=== PATIENT | female | born 1990 | race Caucasian/White ===

== ENCOUNTER 2018-04-06 00:21 | Inpatient (IN) | payer BC ==
[2018-04-06] MEDS ORDERED: Misoprostol 25 MCG (1/4 of 100 MCG) Tab VAG PRN (00:37)
[2018-04-06] MEDS ORDERED: Carboprost Tromethamine 250 MCG/1 ML Amp IM PRN (00:37)
[2018-04-06] MEDS ORDERED: Lidocaine 1% 50 ML MDV INJECT PRN (00:37)
[2018-04-06] MEDS ORDERED: Terbutaline 1 MG/ML SDV SUBCUT PRN (00:37)
[2018-04-06] MEDS ORDERED: Misoprostol 200 MCG Tab PO PRN (00:37)
[2018-04-06] MEDS ORDERED: Water For Irrigation,Sterile 1,000 ML Container IRR PRN (00:37)
[2018-04-06] MEDS ORDERED: Sodium Chloride 0.9% 2.5 ML Syringe FLUSH PRN (00:37)
[2018-04-06] MEDS ORDERED: Methylergonovine 0.2 MG/1 ML Amp IM PRN (00:37)
[2018-04-06] MEDS ORDERED: Tranexamic Acid 1,000 MG in Sodium Chloride 0.9% 100 ML IV PRN (00:37)
[2018-04-06] MEDS ORDERED: Sodium Chloride 0.9% 10 ML Syringe FLUSH PRN (00:37)
[2018-04-06] MEDS ORDERED: Oxytocin/0.9 % Sodium Chloride 30 UNIT/500 ML BAG IV SCH ×2 (00:45)
[2018-04-06] MEDS: Misoprostol 25 MCG (1/4 of 100 MCG) Tab PO PRN ×3 (01:26→09:47)
[2018-04-06] MEDS: Misoprostol 25 MCG (1/4 of 100 MCG) Tab VAG PRN ×3 (01:26→09:44)
--- NOTE | 2018-04-06 08:16 | PCM.LDHP ---
L&D History of Present Illness - General Date of Service: 04/06/18 Admit Problem/Dx: Patient Status Order with Admit Dx/Problem 04/06/18 00:37 Patient Status [ADT] Routine Admission Diagnosis/Problem Admission Diagnosis/Problem - planned 04/06/18 08:10 28yo EDC 04/13/2018 39 0/7wks A+, RI, GBS pos. 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: Reports: Hypertension 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: Psychiatric History: Reports: Depression - Past Surgical History GI Surgical History: Reports: Cholecystectomy Social & Family History - Family History Family Medical History: Noncontributory - Tobacco Use Smoking Status *Q: Former Smoker Years of Tobacco use: 5 Used Tobacco, but Quit: No Second Hand Smoke Exposure: No - Caffeine Use Caffeine Use: Reports: None - Recreational Drug Use Recreational Drug Use: No H&P Review of Systems - Review of Systems: Review Of Systems: See Below General: Reports: No Symptoms HEENT: Reports: No Symptoms Pulmonary: Reports: No Symptoms Cardiovascular: Reports: No Symptoms Gastrointestinal: Reports: No Symptoms Genitourinary: Reports: No Symptoms Musculoskeletal: Reports: No Symptoms Skin: Reports: No Symptoms Psychiatric: Reports: No Symptoms Neurological: Reports: No Symptoms Hematologic/Lymphatic: Reports: No Symptoms Immunologic: Reports: No Symptoms L&D Exam - Exam Exam: See Below - Vital Signs Weight: 95.254 kg - OB Specific Contraction Intensity: Mild to Moderate Movement: Active Heart Tones: Present Heart Tones per Min: 150 Heart Rate (FHR) Variability: Moderate (6-25 bmp) Presentation: Vertex - Reid Score Reid Score Cervix Position: Midposition Reid Score Consistency: Medium Reid Score Effacement: 51-70% Reid Score Dilation: 1-2 cm Reid Score Infant's Station: -2 Reid Score Total: 6 - Exam General: Alert, Oriented, Cooperative HEENT: Hearing Intact Lungs: Clear to Auscultation, Normal Respiratory Effort Cardiovascular: Regular Rate, Regular Rhythm, Normal S1, Normal S2 GI/Abdominal Exam: Soft, Non-Tender Rectal Exam: Deferred Genitourinary: Normal external exam, Normal bimanual exam, Cervical dilitation Back Exam: Normal Inspection, Full Range of Motion Extremities: Normal Inspection, Normal Range of Motion, Non-Tender, No Pedal Edema, Normal Capillary Refill Neurological: Cranial Nerves Intact, Strength Equal Bilateral, Normal Gait, Normal Speech, Normal Tone, Sensation Intact Psychiatric: Alert, Normal Affect, Normal Mood - Patient Data Lab Results Last 24 hrs: Laboratory Results - last 24 hr 04/06/18 04/06/18 Range/Units 01:03 01:03 WBC 12.80 H (4.0-11.0) K/uL RBC 4.77 (4.30-5.90) M/uL Hgb 13.4 (12.0-16.0) g/dL Hct 39.9 (36.0-46.0) % MCV 83.6 (80.0-98.0) fL MCH 28.1 (27.0-32.0) pg MCHC 33.6 (31.0-37.0) g/dL RDW Std Deviation 42.1 (28.0-62.0) fl RDW Coeff of Odilon 14 (11.0-15.0) % Plt Count 220 (150-400) K/uL MPV 12.80 H (7.40-12.00) fL Blood Type A POSITIVE Antibody Screen NEGATIVE Result Diagrams: 04/06/18 01:03 - Problem List (1) Supervision of normal IUP (intrauterine ) in primigravida SNOMED Code(s): 58691910, 936795888, 832937270, 196784830 ICD Code: Z34.00 - ENCNTR FOR SUPRVSN OF NORMAL FIRST , UNSP TRIMESTER Status: Acute Priority: High Current Visit: Yes Qualifiers: Trimester: third trimester Qualified Code(s): Z34.03 - Encounter for supervision of normal first , third trimester Problem List Initiated/Reviewed/Updated: Yes Orders Last 24hrs: Active Orders 24 hr Category Date Time Status Patient Status [ADT] Routine ADT 04/06/18 00:37 Active Bedrest Bathroom Privileges [RC] ASDIRECTED Care 04/06/18 00:37 Active Communication Order [RC] ASDIRECTED Care 04/06/18 00:37 Active Communication Order [RC] ASDIRECTED Care 04/06/18 00:37 Active Communication Order [RC] ASDIRECTED Care 04/06/18 00:37 Active Heart Tones [RC] CONTINUOUS Care 04/06/18 00:37 Active Non Stress Test [RC] PER UNIT ROUTINE Care 04/06/18 00:37 Active Influenza Vaccine Charge [RC] .DISCHARGE Care 04/06/18 02:00 Active May Shower [RC] ASDIRECTED Care 04/06/18 00:37 Active Notify Provider [RC] PRN Care 04/06/18 00:37 Active Notify Provider [RC] PRN Care 04/06/18 00:37 Active Notify Provider [RC] PRN Care 04/06/18 00:37 Active Notify Provider [RC] STAT Care 04/06/18 00:37 Active Oxygen Therapy [RC] ASDIRECTED Care 04/06/18 00:37 Active Up ad Whitney [RC] ASDIRECTED Care 04/06/18 00:37 Active Vaginal Exam [RC] PRN Care 04/06/18 00:37 Active Vaginal Exam [RC] PRN Care 04/06/18 00:37 Active Vital Signs [RC] PER UNIT ROUTINE Care 04/06/18 00:37 Active Vital Signs [RC] PER UNIT ROUTINE Care 04/06/18 00:37 Active Regular Diet [DIET] Diet 04/06/18 Breakfast Active Carboprost Tromethamine [Hemabate DS] Med 04/06/18 00:37 Active 250 mcg IM ASDIRECTED PRN FLU Vacc [id number] 36MOS UP/PF [Fluzone Quad [id number] Med 04/06/18 10:00 Once Syringe] 60 mcg IM .ONCE ONE Lactated Ringers [Ringers, Lactated] 1,000 ml Med 04/06/18 00:45 Active IV ASDIRECTED Lidocaine 1% [Xylocaine 1%] Med 04/06/18 00:37 Active 50 ml INJECT ONETIME PRN Methylergonovine [Methergine] Med 04/06/18 00:37 Active 0.2 mg IM ASDIRECTED PRN Nalbuphine [Nubain] Med 04/06/18 00:37 Active 10 mg IVPUSH Q1H PRN Oxytocin/0.9 % Sodium Chloride [Oxytocin 30 Unit/500 ML Med 04/06/18 00:45 Active -NS] 30 unit in 500 ml IV TITRATE Oxytocin/0.9 % Sodium Chloride [Oxytocin 30 Unit/500 ML Med 04/06/18 00:45 Active -NS] 30 unit in 500 ml IV TITRATE Sodium Chloride 0.9% [Saline Flush] Med 04/06/18 00:37 Active 10 ml FLUSH ASDIRECTED PRN Sodium Chloride 0.9% [Saline Flush] Med 04/06/18 00:37 Active 2.5 ml FLUSH ASDIRECTED PRN Terbutaline [Brethine] Med 04/06/18 00:37 Active 0.25 mg SUBCUT ASDIRECTED PRN Tranexamic Acid [Cyklokapron] 1,000 mg Med 04/06/18 00:37 Active Sodium Chloride 0.9% [Normal Saline] 100 ml IV ONETIME Water For Irrigation,Sterile [Sterile Water for Med 04/06/18 00:37 Active Irrigation] 1,000 ml IRR ASDIRECTED PRN miSOPROStol [Cytotec] Med 04/06/18 00:37 Active 200 mcg PO ONETIME PRN miSOPROStol [Cytotec] Med 04/06/18 00:37 Active 25 mcg PO Q4H PRN miSOPROStol [Cytotec] Med 04/06/18 00:37 Active 25 mcg VAG ONETIME PRN miSOPROStol [Cytotec] Med 04/06/18 00:37 Active 25 mcg VAG Q4H PRN Scalp Electrode [WOMSER] Per Unit Routine Oth 04/06/18 00:37 Ordered Medication Administration Instruction [OM.PC] Q3H Oth 04/06/18 00:45 Ordered Peripheral IV Insertion Adult [OM.PC] Routine Oth 04/06/18 00:37 Ordered Resuscitation Status Routine Resus Stat 04/06/18 00:37 Ordered Medication Orders Carboprost Tromethamine (Hemabate Ds) 250 mcg IM ASDIRECTED PRN PRN Reason: Post Hemorrhage Lactated Ringer's (Ringers, Lactated) 1,000 mls @ 150 mls/hr IV ASDIRECTED SUZETTE Oxytocin/Sodium Chloride (Oxytocin 30 Unit/500 Ml-Ns) 30 unit in 500 mls @ 999 mls/hr IV TITRATE SUZETTE Oxytocin/Sodium Chloride (Oxytocin 30 Unit/500 Ml-Ns) 30 unit in 500 mls @ 2 mls/hr IV TITRATE SUZETTE; Protocol Tranexamic Acid 1,000 mg/ (Sodium Chloride) 110 mls @ 660 mls/hr IV ONETIME PRN PRN Reason: Bleeding Lidocaine HCl (Xylocaine 1%) 50 ml INJECT ONETIME PRN PRN Reason: Laceration repair Methylergonovine Maleate (Methergine) 0.2 mg IM ASDIRECTED PRN PRN Reason: Post Hemorrhage Misoprostol (Cytotec) 200 mcg PO ONETIME PRN PRN Reason: Post Hemorrhage Misoprostol (Cytotec) 25 mcg VAG ONETIME PRN PRN Reason: Cervical Ripening Misoprostol (Cytotec) 25 mcg VAG Q4H PRN PRN Reason: Cervical Ripening Last Admin: 04/06/18 05:44 Dose: 25 mcg Admin: 04/06/18 01:26 Dose: 25 mcg Misoprostol (Cytotec) 25 mcg PO Q4H PRN PRN Reason: Cervical Ripening Last Admin: 04/06/18 05:45 Dose: 25 mcg Admin: 04/06/18 01:26 Dose: 25 mcg Nalbuphine HCl (Nubain) 10 mg IVPUSH Q1H PRN PRN Reason: Pain (severe 7-10) Sodium Chloride (Saline Flush) 10 ml FLUSH ASDIRECTED PRN PRN Reason: Keep Vein Open Sodium Chloride (Saline Flush) 2.5 ml FLUSH ASDIRECTED PRN PRN Reason: Keep Vein Open Sterile Water (Sterile Water For Irrigation) 1,000 ml IRR ASDIRECTED PRN PRN Reason: delivery Terbutaline Sulfate (Brethine) 0.25 mg SUBCUT ASDIRECTED PRN PRN Reason: Tacysystole Assessment/Plan Comment:: IOL A: 28yo EDC 04/13/2018 39 0/7wks A+, RI, GBS pos. IOL term P: Admit, cytotec to pitocin, Amp for GBS when in labor, anticipate , Dr Matthews updated
[2018-04-06] MEDS ORDERED: Ampicillin 2 GM in Sodium Chloride 0.9% 100 ML IV ONE (14:30)
[2018-04-06] MEDS: Lactated Ringers 1,000 ML IV SCH ×2 (15:05→22:42)
[2018-04-06] MEDS: Nalbuphine 10 MG/1 ML Vial IVPUSH PRN ×2 (17:01→18:34)
[2018-04-06] MEDS ORDERED: Ampicillin 1 GM in Sodium Chloride 0.9% 50 ML IV SCH (18:30)
[2018-04-06] MEDS: Ampicillin 1 GM in Sodium Chloride 0.9% 50 ML IV SCH ×2 (19:03→22:44)
[2018-04-07] MEDS ORDERED: Acetaminophen 500 MG Tab PO PRN ×2 (02:14)
[2018-04-07] MEDS ORDERED: oxyCODONE 5 MG Tab PO PRN (02:14)
[2018-04-07] MEDS ORDERED: Benzocaine/Menthol 20%-0.5% Spray 78 GM Cannister TOP PRN (02:14)
[2018-04-07] MEDS ORDERED: Bisacodyl 10 MG Supp RECTAL PRN (02:14)
[2018-04-07] MEDS ORDERED: Lanolin 100% Cream 7 GM Tube TOP PRN (02:14)
[2018-04-07] MEDS ORDERED: Docusate Sodium 100 MG Cap PO PRN (02:14)
[2018-04-07] MEDS ORDERED: Witch Hazel Medicated Pads 40/Jar TOP PRN (02:14)
[2018-04-07] MEDS ORDERED: Ibuprofen 400 MG Tab PO PRN (02:14)
--- NOTE | 2018-04-07 02:19 | PCM.DEL ---
L & D Note - General Info Date of Service: 04/07/18 Mother's Due Date: 04/13/18 - Delivery Note Labor: Augmented by Oxytocin Cervical Ripening Method: Misoprostil Delivery Outcome: Livebirth Infant Delivery Method: Spontaneous Vaginal Delivery-Single Delivery Mode: Spontaneous Presentation: Vertex Nuchal Cord: Present Anesthesia Type: None Episiotomy Type: None Laceration: None Placenta: Intact, Spontaneous Cord: 3 Vessels Estimated Blood Loss: 200 Score 1 min: 3 Score 5 min: 6 Second Stage Interventions: Reports: Pushing, Pulls Own Legs Back Induction Criteria - Reid Score Reid Score Dilation: 1-2 cm Reid Score Effacement: 40-50% Reid Score Infant's Station: -3 Reid Score Consistency: Soft Reid Score Cervix Position: Midposition Reid Score Total: 5 Reid Score Presenting Part: Reports: Cephalic - Induction Gestational Age >/= 39 wks: Yes Medical Indication: Term elective Estimated Pelvis: Reports: Adequate Reassuring Monitoring Strip: Yes Absence of Tachy Systole: Yes - General Info Date of Service: 04/07/18 Admission Dx/Problem (Free Text): Patient Status Order with Admit Dx/Problem 04/06/18 00:37 Patient Status [ADT] Routine Admission Diagnosis/Problem Admission Diagnosis/Problem - planned 04/06/18 08:10 28yo EDC 04/13/2018 39 0/7wks A+, RI, GBS pos. IOL term Functional Status: Reports: Pain Controlled, Tolerating Diet - Review of Systems General: Reports: No Symptoms HEENT: Reports: No Symptoms Pulmonary: Reports: No Symptoms Cardiovascular: Reports: No Symptoms Gastrointestinal: Reports: No Symptoms Genitourinary: Reports: No Symptoms Musculoskeletal: Reports: No Symptoms Skin: Reports: No Symptoms Neurological: Reports: No Symptoms Psychiatric: Reports: No Symptoms - Patient Data Weight - Most Recent: 95.254 kg Lab Results Last 24 Hours: Laboratory Results - last 24 hr 04/07/18 Range/Units 02:06 POC Glucose 112 H (60-110) mg/dL Med Orders - Current: Current Medications Discontinued Medications Carboprost Tromethamine (Hemabate Ds) 250 mcg IM ASDIRECTED PRN PRN Reason: Post Hemorrhage Lactated Ringer's (Ringers, Lactated) 1,000 mls @ 150 mls/hr IV ASDIRECTED SUZETTE Last Admin: 04/06/18 22:42 Dose: 150 mls/hr Oxytocin/Sodium Chloride (Oxytocin 30 Unit/500 Ml-Ns) 30 unit in 500 mls @ 999 mls/hr IV TITRATE SUZETTE Oxytocin/Sodium Chloride (Oxytocin 30 Unit/500 Ml-Ns) 30 unit in 500 mls @ 2 mls/hr IV TITRATE [facility]; Protocol Last Titration: 04/07/18 01:18 Dose: 12 munits/min, 12 mls/hr Tranexamic Acid 1,000 mg/ (Sodium Chloride) 110 mls @ 660 mls/hr IV ONETIME PRN PRN Reason: Bleeding Ampicillin Sodium 2 gm/ Sodium (Chloride) 100 mls @ 200 mls/hr IV ONETIME ONE Stop: 04/06/18 14:59 Last Admin: 04/06/18 15:05 Dose: 200 mls/hr Ampicillin Sodium 1 gm/ Sodium (Chloride) 50 mls @ 100 mls/hr IV Q4HR SUZETTE Ampicillin Sodium 1 gm/ Sodium (Chloride) 50 mls @ 100 mls/hr IV Q4H [facility] Last Admin: 04/06/18 22:44 Dose: 100 mls/hr Lidocaine HCl (Xylocaine 1%) 50 ml INJECT ONETIME PRN PRN Reason: Laceration repair Methylergonovine Maleate (Methergine) 0.2 mg IM ASDIRECTED PRN PRN Reason: Post Hemorrhage Misoprostol (Cytotec) 200 mcg PO ONETIME PRN PRN Reason: Post Hemorrhage Misoprostol (Cytotec) 25 mcg VAG ONETIME PRN PRN Reason: Cervical Ripening Misoprostol (Cytotec) 25 mcg VAG Q4H PRN PRN Reason: Cervical Ripening Last Admin: 04/06/18 09:44 Dose: 25 mcg Misoprostol (Cytotec) 25 mcg PO Q4H PRN PRN Reason: Cervical Ripening Last Admin: 04/06/18 09:47 Dose: 25 mcg Nalbuphine HCl (Nubain) 10 mg IVPUSH Q1H PRN PRN Reason: Pain (severe 7-10) Last Admin: 04/06/18 18:34 Dose: 10 mg Sodium Chloride (Saline Flush) 10 ml FLUSH ASDIRECTED PRN PRN Reason: Keep Vein Open Sodium Chloride (Saline Flush) 2.5 ml FLUSH ASDIRECTED PRN PRN Reason: Keep Vein Open Sterile Water (Sterile Water For Irrigation) 1,000 ml IRR ASDIRECTED PRN PRN Reason: delivery Terbutaline Sulfate (Brethine) 0.25 mg SUBCUT ASDIRECTED PRN PRN Reason: Tacysystole - Exam General: Alert, Oriented, Cooperative Lungs: Normal Respiratory Effort GI/Abdominal Exam: Soft, Non-Tender (Female) Exam: Normal External Exam, Normal Bimanual Exam, Vaginal Bleeding Back Exam: Normal Inspection, Full Range of Motion Extremities: Normal Inspection, Normal Range of Motion, Non-Tender, No Pedal Edema, Normal Capillary Refill Skin: Warm, Dry, Intact Wound/Incisions: Healing Well Neurological: No New Focal Deficit, Normal Speech, Normal Tone, Strength Equal Bilateral Psy/Mental Status: Alert, Normal Affect, Normal Mood - Problem List & Annotations (1) Supervision of normal IUP (intrauterine ) in primigravida SNOMED Code(s): 46662518, 064655883, 032115271, 341723374 Code(s): Z34.00 - ENCNTR FOR SUPRVSN OF NORMAL FIRST , UNSP TRIMESTER Status: Acute Priority: High Current Visit: Yes Qualifiers: Trimester: third trimester Qualified Code(s): Z34.03 - Encounter for supervision of normal first , third trimester (2) (normal spontaneous vaginal delivery) SNOMED Code(s): 61793489 Code(s): O80 - ENCOUNTER FOR FULL-TERM UNCOMPLICATED DELIVERY Status: Acute Priority: High Current Visit: Yes - Problem List Review Problem List Initiated/Reviewed/Updated: Yes - My Orders Last 24 Hours: My Active Orders 04/07/18 02:14 May Shower [RC] ASDIRECTED Up ad Whitney [RC] ASDIRECTED Vital Signs [RC] PER UNIT ROUTINE Acetaminophen [Tylenol Extra Strength] 1,000 mg PO Q4H PRN Acetaminophen [Tylenol Extra Strength] 500 mg PO Q4H PRN Benzocaine/Menthol [Dermoplast Pain Relief 20%-0.5% [place]] 78 gm TOP ASDIRECTED PRN Bisacodyl [Dulcolax] 10 mg RECTAL ONETIME PRN Docusate Sodium [Colace] 100 mg PO BID PRN Ibuprofen [Motrin] 400 mg PO Q4H PRN Ibuprofen [Motrin] 800 mg PO Q6H PRN Lanolin [Lansinoh HPA] See Dose Instructions TOP ASDIRECTED PRN Witch Natalie [Tucks] 1 pad TOP ASDIRECTED PRN oxyCODONE 5 mg PO Q2H PRN Assess Lochia [WOMSER] Per Unit Routine Assess Uterine Involution [WOMSER] Per Unit Routine Peripheral IV Discontinue [OM.PC] Routine Resuscitation Status Routine 04/07/18 02:15 Patient Status [ADT] Routine 04/07/18 Breakfast Regular Diet [DIET] - Plan Plan:: IOL A: 28yo EDC 04/13/2018 39 0/7wks A+, RI, GBS pos. IOL term P: Admit, cytotec to pitocin, Amp for GBS when in labor, anticipate , Dr Matthews updated Delivery A: of viable female, APGARS 3/6, Wt 7#0oz, Intact perineum, EBL 200, Mother and baby bonding well. Stable for recovery P: Routine pp plan of care
[2018-04-07] MEDS: Ibuprofen 800 MG Tab PO PRN (03:59)
[2018-04-08] MEDS: Ibuprofen 800 MG Tab PO PRN ×2 (03:59→11:26)
[2018-04-08 08:14] VITALS: BP 130/75
--- NOTE | 2018-04-08 09:02 | PCM.DCSUM1 ---
Discharge Summary - Hospital Course Free Text/Narrative:: Discharge home with . Follow up 6 weeks for post or sooner if needed. Diagnosis: Stroke: No - Discharge Data Discharge Date: 04/08/18 Discharge Disposition: Home, Self-Care 01 Condition: Good - Discharge Diagnosis/Problem(s) (1) Supervision of normal IUP (intrauterine ) in primigravida SNOMED Code(s): 51706769, 607734219, 841976877, 706176017 ICD Code: Z34.00 - ENCNTR FOR SUPRVSN OF NORMAL FIRST , UNSP TRIMESTER Status: Acute Priority: High Current Visit: Yes Qualifiers: Trimester: third trimester Qualified Code(s): Z34.03 - Encounter for supervision of normal first , third trimester (2) (normal spontaneous vaginal delivery) SNOMED Code(s): 10587543 ICD Code: O80 - ENCOUNTER FOR FULL-TERM UNCOMPLICATED DELIVERY Status: Acute Priority: High Current Visit: Yes - Patient Instructions Diet: Usual Diet as Tolerated Activity: As Tolerated, No Strenuous Activities, Rest and Relax Today Driving: May Drive Today Showering/Bathing: May Shower Notify Provider of: Fever, Increased Pain, Swelling and Redness, Nausea and/or Vomiting Other/Special Instructions: Discharge home with infant. Follow up 6 weeks for post or sooner if needed. - Discharge Plan *PRESCRIPTION DRUG MONITORING PROGRAM REVIEWED*: Not Applicable *COPY OF PRESCRIPTION DRUG MONITORING REPORT IN PATIENT GABBIE: Not Applicable Home Medications: Home Meds Vits #93/Iron Fum/FA [ Formula Tablet] 1 each PO DAILY [History] Referrals: [facility] [Outside] Nat Sanders CNM [Mid-] - 05/18/18 8:30 am - General Info Date of Service: 04/08/18 Admission Dx/Problem (Free Text: Patient Status Order with Admit Dx/Problem 04/06/18 00:37 Patient Status [ADT] Routine Admission Diagnosis/Problem Admission Diagnosis/Problem - planned 04/06/18 08:10 28yo EDC 04/13/2018 39 0/7wks A+, RI, GBS pos. IOL term Functional Status: Reports: Pain Controlled, Tolerating Diet, Ambulating, Urinating - Review of Systems General: Reports: No Symptoms HEENT: Reports: No Symptoms Pulmonary: Reports: No Symptoms Cardiovascular: Reports: No Symptoms Gastrointestinal: Reports: No Symptoms Genitourinary: Reports: No Symptoms Musculoskeletal: Reports: No Symptoms Skin: Reports: No Symptoms Neurological: Reports: No Symptoms Psychiatric: Reports: No Symptoms - Patient Data Vitals - Most Recent: Last Vital Signs Temp 36.3 C 04/08/18 08:00 Pulse 76 04/08/18 08:00 Resp 16 04/08/18 08:00 BP 130/75 04/08/18 08:00 Pulse Ox 98 04/08/18 08:00 Weight - Most Recent: 95.254 kg Med Orders - Current: Current Medications Acetaminophen (Tylenol Extra Strength) 500 mg PO Q4H PRN PRN Reason: Pain Acetaminophen (Tylenol Extra Strength) 1,000 mg PO Q4H PRN PRN Reason: Pain Benzocaine/Menthol (Dermoplast Pain Relief 20%-0.5% [place]) 78 gm TOP ASDIRECTED PRN PRN Reason: Perineal Comfort Measure Last Admin: 04/07/18 04:00 Dose: 1 can Bisacodyl (Dulcolax) 10 mg RECTAL ONETIME PRN PRN Reason: Constipation Docusate Sodium (Colace) 100 mg PO BID PRN PRN Reason: Constipation Emollient Ointment (Lansinoh Hpa) 0 gm TOP ASDIRECTED PRN PRN Reason: Sore Nipples Ibuprofen (Motrin) 400 mg PO Q4H PRN PRN Reason: Pain Ibuprofen (Motrin) 800 mg PO Q6H PRN PRN Reason: Pain Last Admin: 04/08/18 03:59 Dose: 800 mg Oxycodone HCl (Oxycodone) 5 mg PO Q2H PRN PRN Reason: Pain Witch Natalie (Tucks) 1 pad TOP ASDIRECTED PRN PRN Reason: comfort care Last Admin: 04/07/18 04:00 Dose: 1 tub Discontinued Medications Carboprost Tromethamine (Hemabate Ds) 250 mcg IM ASDIRECTED PRN PRN Reason: Post Hemorrhage Lactated Ringer's (Ringers, Lactated) 1,000 mls @ 150 mls/hr IV ASDIRECTED SUZETTE Last Admin: 04/06/18 22:42 Dose: 150 mls/hr Oxytocin/Sodium Chloride (Oxytocin 30 Unit/500 Ml-Ns) 30 unit in 500 mls @ 999 mls/hr IV TITRATE SUZETTE Oxytocin/Sodium Chloride (Oxytocin 30 Unit/500 Ml-Ns) 30 unit in 500 mls @ 2 mls/hr IV TITRATE [facility]; Protocol Last Titration: 04/07/18 01:18 Dose: 12 munits/min, 12 mls/hr Tranexamic Acid 1,000 mg/ (Sodium Chloride) 110 mls @ 660 mls/hr IV ONETIME PRN PRN Reason: Bleeding Ampicillin Sodium 2 gm/ Sodium (Chloride) 100 mls @ 200 mls/hr IV ONETIME ONE Stop: 04/06/18 14:59 Last Admin: 04/06/18 15:05 Dose: 200 mls/hr Ampicillin Sodium 1 gm/ Sodium (Chloride) 50 mls @ 100 mls/hr IV Q4HR SUZETTE Ampicillin Sodium 1 gm/ Sodium (Chloride) 50 mls @ 100 mls/hr IV Q4H [facility] Last Admin: 04/06/18 22:44 Dose: 100 mls/hr Lidocaine HCl (Xylocaine 1%) 50 ml INJECT ONETIME PRN PRN Reason: Laceration repair Methylergonovine Maleate (Methergine) 0.2 mg IM ASDIRECTED PRN PRN Reason: Post Hemorrhage Misoprostol (Cytotec) 200 mcg PO ONETIME PRN PRN Reason: Post Hemorrhage Misoprostol (Cytotec) 25 mcg VAG ONETIME PRN PRN Reason: Cervical Ripening Misoprostol (Cytotec) 25 mcg VAG Q4H PRN PRN Reason: Cervical Ripening Last Admin: 04/06/18 09:44 Dose: 25 mcg Misoprostol (Cytotec) 25 mcg PO Q4H PRN PRN Reason: Cervical Ripening Last Admin: 04/06/18 09:47 Dose: 25 mcg Nalbuphine HCl (Nubain) 10 mg IVPUSH Q1H PRN PRN Reason: Pain (severe 7-10) Last Admin: 04/06/18 18:34 Dose: 10 mg Sodium Chloride (Saline Flush) 10 ml FLUSH ASDIRECTED PRN PRN Reason: Keep Vein Open Sodium Chloride (Saline Flush) 2.5 ml FLUSH ASDIRECTED PRN PRN Reason: Keep Vein Open Sterile Water (Sterile Water For Irrigation) 1,000 ml IRR ASDIRECTED PRN PRN Reason: delivery Terbutaline Sulfate (Brethine) 0.25 mg SUBCUT ASDIRECTED PRN PRN Reason: Tacysystole - Exam General: Reports: Alert, Oriented, Cooperative, No Acute Distress Lungs: Reports: Normal Respiratory Effort GI/Abdominal Exam: Soft, Non-Tender (Female) Exam: Vaginal Bleeding Rectal (Female) Exam: Deferred Back Exam: Reports: Normal Inspection, Full Range of Motion Extremities: Normal Inspection, Normal Range of Motion, Non-Tender, No Pedal Edema, Normal Capillary Refill Skin: Reports: Warm, Dry, Intact Wound/Incisions: Reports: Healing Well Neurological: Reports: No New Focal Deficit, Normal Gait, Normal Speech, Normal Tone, Strength Equal Bilateral Psy/Mental Status: Reports: Alert, Normal Affect, Normal Mood
== END 2018-04-08 11:55 | disposition home or self-care (01) | DRG 560 ==
LOC: MW.OBCHECK 00:21 → MW.OB 00:24 → MW.OBCHECK 00:37 → OBSVTOIN 04-07 01:54
PROVIDERS: ADMIT Obstetrics & Gynecology; ATTEND Obstetrics & Gynecology
PROC: 10E0XZZ Delivery of Products of Conception, External Approach (ICD-10-PCS; principal; 2018-04-07)
PROC: 3E0P7VZ Introduction of Hormone into Female Reproductive, Via Natural or Artificial Opening (ICD-10-PCS; 2018-04-07)
PROC: 3E033VJ Introduction of Other Hormone into Peripheral Vein, Percutaneous Approach (ICD-10-PCS; 2018-04-07)
PROC: 10907ZC Drainage of Amniotic Fluid, Therapeutic from Products of Conception, Via Natural or Artificial Opening (ICD-10-PCS; 2018-04-07)
DX: O99.824 Streptococcus B carrier state complicating childbirth (principal); Z3A.39 39 weeks gestation of pregnancy; Z37.0 Single live birth
CPT/HCPCS: 36415; 59025; 59409; 82962; 85027; 86850; 86900; 86901; 90686; A9270-GY; G0008; J0290; J2300; J2590; J7030; J7050; J7120

== ENCOUNTER 2020-11-09 19:15 | Emergency (ER) | payer BC ==
[2020-11-09] MEDS ORDERED: Sodium Chloride 0.9% 2.5 ML Syringe FLUSH PRN (19:28)
[2020-11-09] MEDS ORDERED: Sodium Chloride 0.9% 10 ML Syringe FLUSH PRN (19:28)
[2020-11-09] MEDS ORDERED: Ondansetron 4 MG/2 ML SDV IVPUSH ONE (20:08)
[2020-11-09] MEDS ORDERED: Sodium Chloride 0.9% 1,000 ML IV ONE ×2 (20:08→22:17)
[2020-11-09] MEDS ORDERED: diphenhydrAMINE 50 MG/ML SDV ONE (20:12)
[2020-11-09 20:13] VITALS: BP 140/90; PULSE 120
--- NOTE | 2020-11-09 20:23 | EDM.PDOC ---
<Klever Trivedi - Last Filed: 11/10/20 01:02> ED HPI GENERAL MEDICAL PROBLEM - General Chief Complaint: Neuro Symptoms/Deficits Stated Complaint: FAINTING, DIZZY Time Seen by Provider: 11/09/20 20:10 - Related Data Allergies Allergy/AdvReac Type Severity Reaction Status Date / Time nickel Allergy Rash Verified 11/09/20 20:13 Home Meds: Home Meds Sertraline [Zoloft] 1 tab PO DAILY 11/09/20 [History] Metoclopramide HCl 5 - 10 mg PO QID PRN #20 tablet 11/10/20 [Rx] ED ROS GENERAL - Review of Systems Review Of Systems: Comprehensive ROS is negative, except as noted in HPI. ED EXAM, NEURO - Physical Exam Exam: See Below Text/Narrative:: Physical exam is in the HPI Course - Vital Signs Text/Narrative:: Patient who had nausea vomiting diarrhea weakness and 2 syncopal episodes after the medication given in the emergency room was able to walk to the bathroom and came back and had no syncopal episode, no orthostasis. She did vomit after she got back to the bed. The brief history is that a month ago she had similar episode for 3 to 4 days with vomiting and diarrhea and syncopal episodes. She began again yesterday. Now she feels nauseated. She has been on sertraline for 3 months and it is making her anxiety better. There is no QT prolongation on EKG. Plan to try Reglan and tell the patient if she has any jitteriness tremor or muscle spasms she needs to take Benadryl since she is on sertraline and Reglan which can cause EPS. The patient also will be advised to take Imodium. Increase fluids as advised and the patient is to call the doctor who prescribes her sertraline in the morning and see if she is supposed to continue that. She will be asked to come back for a Zio patch for 14 days. Departure - Departure Time of Disposition: 01:03 Disposition: Home, Self-Care 01 Condition: Good Clinical Impression: Gastroenteritis, Syncope - Discharge Information Prescriptions: Metoclopramide HCl 5 - 10 mg PO QID PRN #20 tablet PRN Reason: Nausea Instructions: Diarrhea, Adult, [id number], Syncope, [id number] Referrals: PCP,None [Primary Care Provider] - Forms: ED Department Discharge Additional Instructions: Imodium is [id number]. Benadryl which can be used if you have jitteriness because of your medications is [id number]. If you have significant muscle spasm or other side effects of her medications return or call your doctor. It is advised to call the doctor who prescribes her sertraline tomorrow and let them know what we are doing. Wear the Zio patch 14 days. You can pick that up tomorrow. [facility] [address] [place] [id number] [facility] [address] [place] [id number] The following information is given to patients seen in the emergency department who are being discharged to home. This information is to outline your options for follow-up care. We provide all patients seen in our emergency department with a follow-up referral. The need for follow-up, as well as the timing and circumstances, are variable depending upon the specifics of your emergency department visit. If you don't have a primary care physician on staff, we will provide you with a referral. We always advise you to contact your personal physician following an emergency department visit to inform them of the circumstance of the visit and for follow-up with them and/or the need for any referrals to a consulting specialist. The emergency department will also refer you to a specialist when appropriate. This referral assures that you have the opportunity for follow-up care with a specialist. All of these measure are taken in an effort to provide you with optimal care, which includes your follow-up. Under all circumstances we always encourage you to contact your private physician who remains a resource for coordinating your care. When calling for follow-up care, please make the office aware that this follow-up is from your recent emergency room visit. If for any reason you are refused follow-up, please contact the [facility] Emergency Department at and asked to speak to the emergency department charge nurse. <Ada Akins - Last Filed: 11/10/20 20:20> ED HPI GENERAL MEDICAL PROBLEM - General Source of Information: Reports: Patient History Limitations: Reports: No Limitations - History of Present Illness INITIAL COMMENTS - FREE TEXT/NARRATIVE: HISTORY AND PHYSICAL: History of present illness: Patient is a 30-year-old female who presents to the emergency room with complaints of nausea, vomiting, diarrhea which started this am and progress to syncope this afternoon. The patient stated that she had vomited and was walking back to her chair and had a syncopal episode. She then stated she was sitting in her chair and had a syncopal episode. The patient has not been able to keep food or fluids down today. She has not taken any medication for this she does not appreciate any modifiers. The patient states this happened a month ago with the nausea vomiting diarrhea and syncopal episodes which lasted 3 to 4 days. She did not seek medical care at that time. She does state that she started a new medication for her anxiety, sertraline. She stated that she felt as if her heart was racing, her heart rate on the monitor was 97 at this point. Patient denies any fever, chills, headache. Denies any chest pain, back pain, shortness of breath or cough. Denies any abdominal pain, constipation or dysuria. Has not noted any blood in urine or stool. ThisReview of systems: As per history of present illness and below otherwise all systems reviewed and negative. Past medical history: As per history of present illness and as reviewed below otherwise noncontributory. Surgical history: As per history of present illness and as reviewed below otherwise noncontributory. Social history: See social history for further information Family history: As per history of present illness and as reviewed below otherwise noncontributory. Physical exam: General: Well developed and well nourished. Alert and orientated x 3. Nontoxic in appearance and in no acute distress. Vital signs are stable and have been reviewed by me. Nursing notes were reviewed. HEENT: Atraumatic, normocephalic, pupils equal and reactive bilaterally, negative for conjunctival pallor or scleral icterus, mucous membranes moist, TMs normal bilaterally, throat clear, neck supple, nontender, trachea midline. No drooling or trismus noted. No meningeal signs. No hot potato voice noted. Lungs: Clear to auscultation bilaterally. No wheezes, rales, or rhonchi. Chest nontender. Normal work of breathing, no accessory muscles used. Heart: S1S2, regular rate and rhythm without overt murmur, gallops, or rubs. No JVD. No peripheral edema Abdomen: Soft, nondistended, nontender. Normoactive bowel sounds. Negative for masses or costovertebral tenderness.Pelvis: Stable nontender. Genitourinary/Rectal: Deferred. Skin: Intact, warm, dry. No lesions or rashes noted. Hematologic: No petechiae or purpra. Mucosa appropriate color and normal nail bed color and refill. Extremities: Atraumatic, moves all extremities per self without difficulty or deficits, negative for cords or calf pain. Neurovascular unremarkable. Neuro: Awake, alert, oriented. Cranial nerves II through XII unremarkable. Cerebellum unremarkable. Motor and sensory unremarkable throughout. Exam nonfocal. Psychiatric: Mood and affect are appropriate. Normal thought process. Answering questions appropriately. Notes: *This patient was seen and evaluated during the 2019 SARS-CoV-2 novel coronavirus pandemic period. Community viral transmission is ongoing at time of this encounter and the emergency department is operating under pandemic response procedures. After discussion and exam the patient is agreeable to labs, EKG, x-ray, IV fluids and Zofran. (2147) The patient is complaining of increase nausea. Phenergan 12.5mg IM ordered. Patient has leukocytosis 16.86. Her urine is negative. CXR Radiologist Impression: Cardiovascular and mediastinum: Heart size and vasculature are normal in caliber and appearance. Lungs and pleural space: Lungs are clear. No sign of infiltrate or mass. No sign of pleural effusion. No pneumothorax. Bones and soft tissues: No acute findings. She does feel a little better after first liter of fluids. Will order another another liter of normal saline, give 4 mg of Imodium and then try a fluid challenge. Report given to Dr. Trivedi and he will determine disposition of the patient. Diagnostics: EKG, CBC, CMP, lipase, UA, urine hCG, CXR. Therapeutics: IV fluids, Zofran Definitive disposition and diagnosis as appropriate pending reevaluation and review of above. 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: Psychiatric History: Reports: Anxiety, Depression - Past Surgical History GI Surgical History: Reports: Cholecystectomy Social & Family History - Family History Family Medical History: No Pertinent Family History - Tobacco Use Tobacco Use Status *Q: Never Tobacco User Second Hand Smoke Exposure: No - Caffeine Use Caffeine Use: Reports: None - Recreational Drug Use Recreational Drug Use: No Course - Vital Signs Last Recorded V/S: Last Vital Signs Temp 96.9 F 11/09/20 20:09 Pulse 120 H 11/09/20 20:09 Resp 18 11/09/20 20:09 BP 140/90 11/09/20 20:09 Pulse Ox 98 11/09/20 20:09 - Orders/Labs/Meds Orders: Active Orders 24 hr Category Date Time Status Saline Lock Insert [OM.PC] Stat Oth 11/09/20 19:28 Ordered Labs: Laboratory Tests 11/09/20 11/09/20 11/09/20 Range/Units 20:15 20:15 20:15 WBC 16.86 H (4.0-11.0) K/uL RBC 5.28 (4.30-5.90) M/uL Hgb 14.9 (12.0-16.0) g/dL Hct 45.2 (36.0-46.0) % MCV 85.6 (80.0-98.0) fL MCH 28.2 (27.0-32.0) pg MCHC 33.0 (31.0-37.0) g/dL RDW Std Deviation 41.9 (28.0-62.0) fl RDW Coeff of Odilon 14 (11.0-15.0) % Plt Count 345 (150-400) K/uL MPV 10.90 (7.40-12.00) fL Neut % (Auto) 89.9 H (48.0-80.0) % Lymph % (Auto) 3.7 L (16.0-40.0) % Hartley % (Auto) 5.9 (0.0-15.0) % Eos % (Auto) 0.4 (0.0-7.0) % Baso % (Auto) 0.1 (0.0-1.5) % Neut # (Auto) 15.2 H (1.4-5.7) K/uL Lymph # (Auto) 0.6 (0.6-2.4) K/uL Hartley # (Auto) 1.0 H (0.0-0.8) K/uL Eos # (Auto) 0.1 (0.0-0.7) K/uL Baso # (Auto) 0.0 (0.0-0.1) K/uL Nucleated RBC % 0.0 /100WBC Nucleated RBCs # 0 K/uL Sodium 142 (136-145) mmol/L Potassium 3.7 (3.5-5.1) mmol/L Chloride 104 (98-107) mmol/L Carbon Dioxide 25.2 (21.0-32.0) mmol/L BUN 10 (7.0-18.0) mg/dL Creatinine 1.1 H (0.6-1.0) mg/dL Est Cr Clr Drug Dosing 54.20 mL/min Estimated GFR (MDRD) 58.7 ml/min Glucose 141 H (74-106) mg/dL Calcium 8.9 (8.5-10.1) mg/dL Total Bilirubin 0.4 (0.2-1.0) mg/dL AST 15 (15-37) IU/L ALT 24 (14-63) IU/L Alkaline Phosphatase 80 (46-116) U/L Total Protein 8.7 H (6.4-8.2) g/dL Albumin 4.2 (3.4-5.0) g/dL Globulin 4.5 H (2.6-4.0) g/dL Albumin/Globulin Ratio 0.9 (0.9-1.6) Lipase 111 (73-393) U/L Urine Color Urine Appearance Urine pH (5.0-8.0) Ur Specific [place] (1.001-1.035) Urine Protein (NEGATIVE) mg/dL Urine Glucose (UA) (NEGATIVE) mg/dL Urine Ketones (NEGATIVE) mg/dL Urine Occult Blood (NEGATIVE) Urine Nitrite (NEGATIVE) Urine Bilirubin (NEGATIVE) Urine Urobilinogen (<2.0) EU/dL Ur Leukocyte Esterase (NEGATIVE) Urine RBC (0-2/HPF) Urine WBC (0-5/HPF) Ur Epithelial Cells (NONE-FEW) Urine Bacteria (NEGATIVE) Urine Mucus (NONE-MOD) Urine HCG, Qual (NEGATIVE) 11/09/20 11/09/20 Range/Units 21:35 21:35 WBC (4.0-11.0) K/uL RBC (4.30-5.90) M/uL Hgb (12.0-16.0) g/dL Hct (36.0-46.0) % MCV (80.0-98.0) fL MCH (27.0-32.0) pg MCHC (31.0-37.0) g/dL RDW Std Deviation (28.0-62.0) fl RDW Coeff of Odilon (11.0-15.0) % Plt Count (150-400) K/uL MPV (7.40-12.00) fL Neut % (Auto) (48.0-80.0) % Lymph % (Auto) (16.0-40.0) % Hartley % (Auto) (0.0-15.0) % Eos % (Auto) (0.0-7.0) % Baso % (Auto) (0.0-1.5) % Neut # (Auto) (1.4-5.7) K/uL Lymph # (Auto) (0.6-2.4) K/uL Hartley # (Auto) (0.0-0.8) K/uL Eos # (Auto) (0.0-0.7) K/uL Baso # (Auto) (0.0-0.1) K/uL Nucleated RBC % /100WBC Nucleated RBCs # K/uL Sodium (136-145) mmol/L Potassium (3.5-5.1) mmol/L Chloride (98-107) mmol/L Carbon Dioxide (21.0-32.0) mmol/L BUN (7.0-18.0) mg/dL Creatinine (0.6-1.0) mg/dL Est Cr Clr Drug Dosing mL/min Estimated GFR (MDRD) ml/min Glucose (74-106) mg/dL Calcium (8.5-10.1) mg/dL Total Bilirubin (0.2-1.0) mg/dL AST (15-37) IU/L ALT (14-63) IU/L Alkaline Phosphatase (46-116) U/L Total Protein (6.4-8.2) g/dL Albumin (3.4-5.0) g/dL Globulin (2.6-4.0) g/dL Albumin/Globulin Ratio (0.9-1.6) Lipase (73-393) U/L Urine Color YELLOW Urine Appearance CLEAR Urine pH 7.0 (5.0-8.0) Ur Specific [place] 1.015 (1.001-1.035) Urine Protein TRACE H (NEGATIVE) mg/dL Urine Glucose (UA) NEGATIVE (NEGATIVE) mg/dL Urine Ketones NEGATIVE (NEGATIVE) mg/dL Urine Occult Blood NEGATIVE (NEGATIVE) Urine Nitrite NEGATIVE (NEGATIVE) Urine Bilirubin NEGATIVE (NEGATIVE) Urine Urobilinogen 0.2 (<2.0) EU/dL Ur Leukocyte Esterase NEGATIVE (NEGATIVE) Urine RBC NONE SEEN (0-2/HPF) Urine WBC 0-3 (0-5/HPF) Ur Epithelial Cells MODERATE (NONE-FEW) Urine Bacteria 1+ H (NEGATIVE) Urine Mucus LIGHT (NONE-MOD) Urine HCG, Qual NEGATIVE (NEGATIVE) Meds: Medications Discontinued Medications Generic Name Dose Route Start Last Admin Trade Name Freq PRN Reason Stop Dose Admin Diphenhydramine HCl Confirm 11/09/20 20:12 11/09/20 20:27 Diphenhydramine 50 Mg/Ml Sdv Administered 11/09/20 20:13 50 mg Dose Administration 50 mg .ROUTE .STK-MED ONE Diphenhydramine HCl 25 mg 11/10/20 00:20 11/10/20 00:45 Diphenhydramine 50 Mg/Ml Sdv IVPUSH 11/10/20 00:21 25 mg ONETIME ONE Administration Sodium Chloride 1,000 mls @ 999 mls/hr 11/09/20 20:08 11/09/20 20:27 Normal Saline IV 11/09/20 21:08 999 mls/hr STAT ONE Administration Sodium Chloride 1,000 mls @ 999 mls/hr 11/09/20 22:17 11/09/20 22:57 Normal Saline IV 11/09/20 23:17 999 mls/hr .BOLUS ONE Administration Loperamide HCl 4 mg 11/09/20 22:17 11/09/20 22:58 Loperamide 2 Mg Cap PO 11/09/20 22:18 4 mg ONETIME ONE Administration Metoclopramide HCl 10 mg 11/10/20 00:19 11/10/20 00:42 Metoclopramide 10 Mg/2 Ml Sdv IVPUSH 11/10/20 00:20 10 mg ONETIME ONE Administration Ondansetron HCl 4 mg 11/09/20 20:08 11/09/20 20:27 Ondansetron 4 Mg/2 Ml Sdv IVPUSH 11/09/20 20:09 4 mg ONETIME ONE Administration Promethazine HCl 12.5 mg 11/09/20 21:48 11/09/20 22:58 Promethazine 25 Mg/Ml Sdv IM 11/09/20 21:49 12.5 mg ONETIME ONE Administration Sodium Chloride 10 ml 11/09/20 19:28 11/09/20 20:26 Sodium Chloride 0.9% 10 Ml Syringe FLUSH 10 ml ASDIRECTED PRN Administration Keep Vein Open Sodium Chloride 2.5 ml 11/09/20 19:28 11/09/20 20:27 Sodium Chloride 0.9% 2.5 Ml Syringe FLUSH 2.5 ml ASDIRECTED PRN Administration Keep Vein Open Sepsis Event Note (ED) - Evaluation Sepsis Screening Result: No Definite Risk
[2020-11-09 20:47] LABS: CARBON DIOXIDE,CO2 25.2 mmol/L (21.0-32.0); POTASSIUM,K 3.7 mmol/L (3.5-5.1)
--- NOTE | 2020-11-09 20:48 | PCM.SN.2 ---
- Free Text/Narrative Note: EG performed at 2041 hrs. sinus rhythm heart rate 91 [place] interval 114 [place] XX [address] and ST impression no acute injury or arrhythmia.
[2020-11-09] MEDS ORDERED: Promethazine 25 MG/ML SDV IM ONE (21:48)
[2020-11-09] MEDS ORDERED: Loperamide 2 MG Cap PO ONE (22:17)
--- NOTE | 2020-11-09 22:29 | CR ---
Indication: Pain and shortness of breath Technique: Chest 1 view Comparison: None Findings/Impression: Cardiovascular and mediastinum: Heart size and vasculature are normal in caliber and appearance. Lungs and pleural space: Lungs are clear. No sign of infiltrate or mass. No sign of pleural effusion. No pneumothorax. Bones and soft tissues: No acute findings. Dictated by Ren Nova MD @ 11/09/2020 10:27:[address] Ren Nova @ Nov 09 2020 10:27PM
[2020-11-10] MEDS ORDERED: Metoclopramide 10 MG/2 ML SDV IVPUSH ONE (00:19)
[2020-11-10] MEDS ORDERED: diphenhydrAMINE 50 MG/ML SDV IVPUSH ONE (00:20)
== END 2020-11-10 01:26 | disposition home or self-care (01) ==
LOC: MW.ED 19:15
DX: K52.9 Noninfective gastroenteritis and colitis, unspecified (principal); R55 Syncope and collapse; I10 Essential (primary) hypertension; Z90.49 Acquired absence of other specified parts of digestive tract; Z91.09 Other allergy status, other than to drugs and biological substances
CPT/HCPCS: 36415; 71045; 71045-26; 80053; 81001; 81025; 83690; 85025; 93005; 93010; 96372; 96374; 96375; 99283; 99284-25; A9270-GY; J1200; J2405; J2550; J2765; J7030

== ENCOUNTER 2025-01-13 10:46 | Emergency (ER) | payer BC ==
[2025-01-13] MEDS ORDERED: Sodium Chloride 0.9% 2.5 ML Syringe FLUSH PRN (11:14)
[2025-01-13] MEDS ORDERED: Sodium Chloride 0.9% 20 ML SDV IV PRN (11:14)
[2025-01-13] MEDS ORDERED: Sodium Chloride 0.9% 10 ML Syringe FLUSH PRN (11:14)
[2025-01-13 11:58] LABS: BASOPHILS ABSOLUTE AUTO 0.05 K/uL (0.00-0.20); BASOPHILS PERCENT AUTO 0.4 % (0.0-1.0); EOSINOPHILS ABSOLUTE AUTO 0.12 K/uL (0.00-0.45); HEMATOCRIT 43.9 % (37.0-47.0); HEMOGLOBIN 14.7 g/dL (12.0-16.0); IMMATURE GRAN ABSOLUTE AUTO 0.04 K/uL (0.00-0.05); IMMATURE GRAN PERCENT AUTO 0.3 % (0.0-0.4); LYMPHOCYTES ABSOLUTE AUTO 1.88 K/uL (1.00-4.80); LYMPHOCYTES PERCENT AUTO 15.9 % (24.0-44.0); MEAN CORPUSCULAR HEMOGLOBIN 28.2 pg (28.0-32.0); MEAN CORPUSCULAR HGB CONC 33.5 g/dL (32.0-36.0); MEAN CORPUSCULAR VOLUME 84.1 fL (83.0-99.0); MEAN PLATELET VOLUME 10.3 fL (9.4-12.3); MONOCYTES ABSOLUTE AUTO 0.68 K/uL (0.00-0.80); MONOCYTES PERCENT AUTO 5.8 % (0.0-8.0); NEUTROPHILS ABSOLUTE AUTO 9.02 K/uL (1.80-7.70); NEUTROPHILS PERCENT AUTO 76.6 % (41.0-71.0); PLATELET COUNT,PLT 385 K/uL (150-400); RED BLOOD CELL COUNT 5.22 M/uL (4.10-5.30); WHITE BLOOD CELL COUNT,WBC 11.79 K/uL (3.9-11.3)
[2025-01-13 12:00] LABS: APPEARANCE,URINE CLEAR; BILIRUBIN,URINE NEGATIVE (NEGATIVE); COLOR,URINE YELLOW; GLUCOSE,URINE NEGATIVE (NEGATIVE); KETONES,URINE NEGATIVE (NEGATIVE); LEUKOCYTE ESTERASE,URINE NEGATIVE (NEGATIVE); NITRITE,URINE NEGATIVE (NEGATIVE); OCCULT BLOOD,URINE TRACE-INTACT (NEGATIVE); PH,URINE 5.5 (5.0-8.0); PROTEIN,URINE NEGATIVE (NEGATIVE); UROBILINOGEN,URINE 0.2 EU/dL (<2.0)
[2025-01-13 12:07] LABS: BACTERIA,URINE FEW (NEGATIVE); EPITHELIAL CELLS,URINE MANY (NONE-FEW); RBC,URINE 0-1 (0-2/HPF); WBC,URINE 0-1 (0-5/HPF)
[2025-01-13 12:22] LABS: A/G RATIO 1.2 (0.9-1.6); ALBUMIN 4.4 g/dL (3.4-5.0); BILIRUBIN TOTAL 0.6 mg/dL (0.2-1.0); CARBON DIOXIDE,CO2 26.3 mmol/L (21.0-32.0); CREATININE 0.9 mg/dL (0.6-1.0); EST CRCL DRUG DOSING (CG) 63.86 mL/min; MAGNESIUM 2.1 mg/dL (1.8-2.4); POTASSIUM,K 4.5 mmol/L (3.5-5.1); PROTEIN TOTAL,TP 8.2 g/dL (6.4-8.2)
[2025-01-13 12:36] LABS: LACTIC ACID 1.3 mmol/L (0.4-2.0)
[2025-01-13 15:05] VITALS: BP 147/88; PULSE 88
== END 2025-01-13 15:05 | disposition home or self-care (01) ==
LOC: MW.ED 10:46
DX: O99.891 Other specified diseases and conditions complicating pregnancy (principal); R10.13 Epigastric pain; O10.011 Pre-existing essential hypertension complicating pregnancy, first trimester; Z91.048 Other nonmedicinal substance allergy status; Z3A.01 Less than 8 weeks gestation of pregnancy
CPT/HCPCS: 36415; 76801; 76801-26; 76817; 76817-26; 80053; 81001; 83605; 83690; 83735; 84702; 85025; 99283; 99284